=== PATIENT | male | born 1965 | race Caucasian/White ===

== ENCOUNTER 2018-05-30 20:56 | Emergency (ER) | payer SELFPAY ==
[2018-05-30 20:58] VITALS: BP 195/88; PULSE 102; RESP 20; TEMP 36.8; O2SAT 97; BMI 33.4
[2018-05-30 21:11] VITALS: BP 170/88; PULSE 97; RESP 19; O2SAT 97
--- NOTE | 2018-05-30 21:19 | EKG12_ITS ---
Test Reason : PALP Blood Pressure : / mmHG Vent. Rate : 099 BPM Atrial Rate : 099 BPM P-R Int : 120 ms QRS Dur : 094 ms QT Int : 346 ms P-R-T Axes : 049 064 053 degrees QTc Int : 444 ms Normal sinus rhythm Nonspecific ST abnormality Abnormal ECG Confirmed by TED JIMÉNEZ, MIGUEL ([id number]), movie editor MARVIN DE LA O ([id number]) on 06/02/2018 11:20:12 AM Referred By: AZRA Confirmed By:MIGUEL JEAN MD
--- NOTE | 2018-05-30 21:20 | RAD_ITS ---
STUDY: X-RAY CHEST REASON FOR EXAM: Male, 52 years old. Tachycardia, bilateral arm pain and lower abdominal pain. Prior history of hypertension and colorectal cancer. TECHNIQUE: 1 view # of Images: 2 COMPARISON: Prior portable chest of September 28, 2014 FINDINGS: The lungs are clear and expanded. There is no demonstrated pleural abnormality. Normal size heart. Normal mediastinum and ronnie. Normal visualized pulmonary arteries. Normal visualized aortic arch and descending thoracic aorta. There are diffuse degenerative changes of the visualized thoracic spine. Normal visualized ribs, clavicles, and shoulders. There is no demonstrated abnormality of the visualized soft tissue structures of the upper abdomen. RAD/Chest 1 View (Portable) IMPRESSION: No acute cardiopulmonary findings or changes. Negative for new consolidation, focal atelectasis, pleural effusion or cardiomegaly. Electronically Signed: Lashay Son MD at 22:10 EDT , Service support ,
[2018-05-30] MEDS: Aspirin 81 MG TAB.CHEW 324 MG PO (21:42)
[2018-05-30 21:56] LABS: Absolute Lymphocyte Count 1.35 X10^3/ul (0.83-4.51); Absolute Neutrophil Count 3.8 X10^3/uL (2.0-7.7); Basophil# 0.02 X10^3/uL; Basophil% 0.4 % (0-1); Eosinophil# 0.04 X10^3/uL; Eosinophils% 0.7 % (0-5); Hematocrit 44.4 % (40-54); Hemoglobin 15.2 g/dl (13.0-16.5); Lymphocyte # 1.35 X10^3/ul (4.0); Lymphocyte % 23.7 % (19-41); Mean Corp Hgb Conc 34.2 g/gl (32-36); Mean Corpuscular Hgb 31.4 pg (27.0-32.0); Mean Corpuscular Volume 91.7 fL (80-94); Mean Platelet Vol. 10.4 fl (6.2-12.0); Monocyte# 0.46 X10^3/uL; Monocyte% 8.1 % (0-10); Neutrophil # 3.82 X10^3/uL (2.7-7.7); Neutrophil % 66.9 % (47-70); Platelet Count 162 K/mm3 (150-450); RBC Distribution Width CV 12.6 % (11.6-14.6); RBC Distribution Width SD 41.7 fl (35.1-43.9); Red Blood Count 4.84 M/mm3 (4.6-6.2); White Blood Count 5.7 K/mm3 (4.4-11.0)
[2018-05-30 21:57] LABS: POSITIVE COUNT NO; POSITIVE DIFFERENTIAL NO; POSITIVE MORPHOLOGY NO
[2018-05-30 22:00] VITALS: BP 138/74; PULSE 75; RESP 18; O2SAT 97
[2018-05-30 22:12] LABS: Anion Gap 8 (5-15); BUN 14 mg/dL (7-18); Calcium,Total 8.8 mg/dL (8.5-10.1); Chloride 105 mmol/L (98-107); Creatinine, Serum 0.93 mg/dL (0.70-1.30); EST Glomerular Filtration Rate 90 mL/min (>60); Est Glom Filt Rate - Afr Amer 109 mL/min (>60); Estimated Creatinine Clearance 101.98 ml/min; Glucose 137 mg/dL (74-106); Potassium 3.5 mmol/L (3.5-5.1); Sodium Level 140 mmol/L (136-145)
--- NOTE | 2018-05-30 22:26 | ED.VISSUMM ---
- ER Visit Summary Date of Service: 05/30/18 Chief Complaint: Palpitations History of Present Illness: The patient is a 52 M who presents with palpitations. They started today. He also complains of other vague symptoms including tingling in his groin, he hears his heartbeat in his ears. He is very vague with his symptoms and cannot tell me anything specific except palpitations. He does have a history of atrial fibrillation as well as colorectal cancel. He is having no treatments for that at this time. He does have a colostomy in place and has no symptoms associated with that Physical Examination: Vital signs reviewed. HEENT exam unremarkable. Heart is regular rate and rhythm without murmurs. Lungs are clear to auscultation. Abdomen is soft and nontender. There is a colostomy in place that appears normal extremities reveal no edema. Peripheral pulses are equal. Skin exam normal. Neurologic exam normal. Test Results: EKG is sinus rhythm with a rate of 99. No ST changes. Laboratory studies normal except for glucose of 137. Chest x-ray unremarkable Emergency Department Course and Treatment: Patient was placed on the hat cutter. No evidence of ectopy or tachyarrhythmias. Patient will be discharged to monitor symptoms at home. He will follow-up with his PCP Treatment Plan: [] Disposition: Discharge Impression: Palpitations This note was generated with [employer] dictation software. It may contain incorrect words, spelling, and punctuation that were not noted in review of the chart prior to signing ED Disposition - Plan for ED Patient: Chief Complaint: Palpitations Referrals: Daron Mena MD [Primary Care Provider] -
--- NOTE | 2018-05-30 22:29 | ED.DCSUM_ITS ---
- ER Visit Summary Date of Service: 05/30/18 Chief Complaint: Palpitations History of Present Illness: The patient is a 52 M who presents with palpitations. They started today. He also complains of other vague symptoms including tingling in his groin, he hears his heartbeat in his ears. He is very vague with his symptoms and cannot tell me anything specific except palpitations. He does have a history of atrial fibrillation as well as colorectal cancel. He is having no treatments for that at this time. He does have a colostomy in place and has no symptoms associated with that Physical Examination: Vital signs reviewed. HEENT exam unremarkable. Heart is regular rate and rhythm without murmurs. Lungs are clear to auscultation. Abdomen is soft and nontender. There is a colostomy in place that appears normal extremities reveal no edema. Peripheral pulses are equal. Skin exam normal. Neurologic exam normal. Test Results: EKG is sinus rhythm with a rate of 99. No ST changes. Laboratory studies normal except for glucose of 137. Chest x-ray unremarkable Emergency Department Course and Treatment: Patient was placed on the cheese maker. No evidence of ectopy or tachyarrhythmias. Patient will be discharged to monitor symptoms at home. He will follow-up with his PCP Treatment Plan: [] Disposition: Discharge Impression: Palpitations This note was generated with [employer] dictation software. It may contain incorrect words, spelling, and punctuation that were not noted in review of the chart prior to signing ED Disposition - Plan for ED Patient: Chief Complaint: Palpitations Referrals: Daron Mena MD [Primary Care Provider] -
--- NOTE | 2018-05-30 22:30 | ED.DEP ---
ED Disposition - Plan for ED Patient: Disposition: Home or Assisted Living Chief Complaint: Palpitations Instructions: ED Palpitations Referrals: Daron Mena MD [Primary Care Provider] -
[2018-05-30 23:10] VITALS: BP 141/70; PULSE 79; RESP 16; O2SAT 97
== END 2018-05-30 23:12 | disposition home or self-care (01) ==
PROVIDERS: Emergency Provider Emergency Medicine; Family Provider Family Medicine; PCP Family Medicine
DX: R00.2 Palpitations (principal); I10 Essential (primary) hypertension; I48.91 Unspecified atrial fibrillation; Z72.0 Tobacco use; Z93.3 Colostomy status
CPT/HCPCS: 71045; 80048; 84484; 85025; 93005; 99285; A4216

== ENCOUNTER 2018-06-18 18:42 | Emergency (ER) | payer SELFPAY ==
[2018-06-18 18:43] VITALS: BP 194/81; PULSE 133; RESP 20; TEMP 36.4; O2SAT 98; BMI 33.2
[2018-06-18 18:46] VITALS: BP 194/81; PULSE 119; RESP 16; O2SAT 97
--- NOTE | 2018-06-18 18:55 | EKG12_ITS ---
Test Reason : Blood Pressure : / mmHG Vent. Rate : 119 BPM Atrial Rate : 119 BPM P-R Int : 146 ms QRS Dur : 088 ms QT Int : 320 ms P-R-T Axes : 054 053 017 degrees QTc Int : 450 ms Sinus tachycardia Possible Left atrial enlargement Nonspecific ST abnormality Abnormal ECG Confirmed by HARINI MIGUEL ([id number]), senior technical editor ABIDA LAKE ([id number]) on 06/22/2018 2:24:55 PM Referred By: SKY Confirmed By:HARINI MIGUEL
[2018-06-18 18:59] VITALS: PULSE 100
[2018-06-18] MEDS: 0.9% Normal Saline 1,000 ML 999 ML IV (18:59)
[2018-06-18 19:11] LABS: Absolute Lymphocyte Count 1.99 X10^3/ul (0.83-4.51); Absolute Neutrophil Count 5.5 X10^3/uL (2.0-7.7); Basophil# 0.02 X10^3/uL; Basophil% 0.2 % (0-1); Eosinophil# 0.05 X10^3/uL; Eosinophils% 0.6 % (0-5); Hematocrit 47.3 % (40-54); Lymphocyte # 1.99 X10^3/ul (4.0); Lymphocyte % 24.7 % (19-41); Mean Corp Hgb Conc 33.8 g/gl (32-36); Mean Corpuscular Volume 91.7 fL (80-94); Mean Platelet Vol. 10.3 fl (6.2-12.0); Monocyte# 0.49 X10^3/uL; Monocyte% 6.1 % (0-10); Neutrophil # 5.49 X10^3/uL (2.7-7.7); Neutrophil % 68.3 % (47-70); Platelet Count 167 K/mm3 (150-450); RBC Distribution Width CV 12.5 % (11.6-14.6); RBC Distribution Width SD 41.7 fl (35.1-43.9); Red Blood Count 5.16 M/mm3 (4.6-6.2); White Blood Count 8.1 K/mm3 (4.4-11.0)
[2018-06-18 19:12] LABS: POSITIVE COUNT NO; POSITIVE DIFFERENTIAL NO; POSITIVE MORPHOLOGY NO
[2018-06-18 19:23] LABS: Anion Gap 11 (5-15); BUN 14 mg/dL (7-18); Chloride 103 mmol/L (98-107); EST Glomerular Filtration Rate 83 mL/min (>60); Est Glom Filt Rate - Afr Amer 101 mL/min (>60); Estimated Creatinine Clearance 94.84 ml/min; Glucose 142 mg/dL (74-106); Potassium 3.2 mmol/L (3.5-5.1); Sodium Level 140 mmol/L (136-145)
[2018-06-18 19:56] VITALS: BP 154/80; PULSE 101; RESP 17; O2SAT 97
[2018-06-18 20:00] VITALS: BP 160/85; PULSE 94; RESP 16; O2SAT 96
--- NOTE | 2018-06-18 20:27 | ED.DCSUM_ITS ---
- ER Visit Summary Date of Service: 06/18/18 Chief Complaint: Palpitations History of Present Illness: The patient is a 52 M who presents with palpitations. He started with this 1 hour ago. At the same time he felt a cold sensation in his groin that went into his arms. He had no chest pain or shortness of breath with this. He does have a history of the same. I saw him for this a couple of months ago and had a negative workup at that time. He did follow-up with his seed cleaning machine operator. He recommended a Holter monitor but the patient did not do it because of the cost associated with it. Physical Examination: Vital signs reviewed. HEENT exam unremarkable. Heart is tachycardic and regular rhythm without murmurs. Lungs are clear to auscultation. Abdomen is soft and nontender. He has a colostomy in place in the left lower quadrant. Extremities reveal no edema. Skin exam normal. Neurologic exam normal. Test Results: EKG is sinus tachycardia with a rate of 119. No ST changes. Laboratory studies normal except for potassium of 3.2 Emergency Department Course and Treatment: I did replace his potassium orally. When I reevaluated him he felt better. His heart rate is in the mid 90s. I am unclear as to why the patient gets palpitations. It is a regular rhythm. He does have a history of paroxysmal atrial fibrillation but this is a regular rhythm. He will need to follow-up with his seed cleaning machine operator Treatment Plan: [] Disposition: Discharge Impression: Palpitations, hypokalemia This note was generated with [employer] dictation software. It may contain incorrect words, spelling, and punctuation that were not noted in review of the chart prior to signing ED Disposition - Plan for ED Patient: Disposition: Home or Assisted Living Chief Complaint: Palpitations Instructions: ED Palpitations Referrals: Daron Mena MD [Primary Care Provider] -
[2018-06-18 20:32] VITALS: BP 160/85; PULSE 98; RESP 16; O2SAT 98
== END 2018-06-18 20:33 | disposition home or self-care (01) ==
PROVIDERS: Emergency Provider Emergency Medicine; Family Provider Family Medicine; PCP Family Medicine
DX: R00.2 Palpitations (principal); E87.6 Hypokalemia; I48.0 Paroxysmal atrial fibrillation; I10 Essential (primary) hypertension; Z72.0 Tobacco use
CPT/HCPCS: 80048; 84484; 85025; 93005; 99284; J7030; A4216

== ENCOUNTER 2018-06-19 17:00 | Emergency (ER) | payer SELFPAY ==
[2018-06-19 17:02] VITALS: BP 173/82; PULSE 129; RESP 17; TEMP 36.9; O2SAT 97; BMI 32.8
[2018-06-19 17:16] VITALS: BP 164/98; PULSE 96; RESP 113; O2SAT 97
--- NOTE | 2018-06-19 17:24 | EKG12_ITS ---
Test Reason : PALPTAIONS Blood Pressure : / mmHG Vent. Rate : 104 BPM Atrial Rate : 104 BPM P-R Int : 142 ms QRS Dur : 102 ms QT Int : 348 ms P-R-T Axes : 064 055 039 degrees QTc Int : 457 ms Sinus tachycardia Minimal voltage criteria for LVH, may be normal variant Borderline ECG Confirmed by MARIAMA JIMÉNEZ, VICTORINO ([id number]), news assignment editor ABIDA LAKE ([id number]) on 06/23/2018 3:38:12 PM Referred By: ALIDA Confirmed By:VICTORINO LESLIE MD
--- NOTE | 2018-06-19 17:24 | RAD_ITS ---
STUDY: X-RAY CHEST REASON FOR EXAM: Male, 52 years old. Fever, palpitations. TECHNIQUE: PA and lateral chest. COMPARISON: 05/30/2018. FINDINGS: The lungs are clear and expanded. There is no demonstrated pleural abnormality. Normal size heart. Normal mediastinum and ronnie. Normal visualized pulmonary arteries. Normal visualized aortic arch and descending thoracic aorta. Normal visualized thoracic spine. Normal visualized ribs, clavicles, and shoulders. There is no demonstrated abnormality of the visualized soft tissue structures of the upper abdomen. RAD/Chest PA and Lateral IMPRESSION: Normal x-ray examination of the chest. Electronically Signed: Margie Hay MD at 17:57 EST Tel , Service support ,
[2018-06-19 17:57] VITALS: PULSE 90
[2018-06-19 18:01] LABS: ALB/GLOB Ratio 1.3 RATIO (0.9-2.4); AST(SGOT) 9 U/L (15-37); Absolute Lymphocyte Count 1.03 X10^3/ul (0.83-4.51); Absolute Neutrophil Count 4.3 X10^3/uL (2.0-7.7); Alanine Aminotransfer ALT/SGPT 28 U/L (16-61); Albumin, Serum 4.1 g/dL (3.2-5.0); Alkaline Phosphatase 82 U/L (45-117); Anion Gap 7 (5-15); BUN 14 mg/dL (7-18); BUN/Creat Ratio 15.8 RATIO (10-20); Basophil# 0.01 X10^3/uL; Basophil% 0.2 % (0-1); Calcium,Total 8.8 mg/dL (8.5-10.1); Chloride 105 mmol/L (98-107); Creatinine, Serum 0.89 mg/dL (0.70-1.30); EST Glomerular Filtration Rate 95 mL/min (>60); Eosinophil# 0.03 X10^3/uL; Eosinophils% 0.5 % (0-5); Est Glom Filt Rate - Afr Amer 116 mL/min (>60); Estimated Creatinine Clearance 106.57 ml/min; Globulin 3.2 g/dL (2.2-4.2); Glucose 113 mg/dL (74-106); Hematocrit 46.4 % (40-54); Hemoglobin 15.6 g/dl (13.0-16.5); Lymphocyte # 1.03 X10^3/ul (4.0); Lymphocyte % 17.2 % (19-41); Mean Corp Hgb Conc 33.6 g/gl (32-36); Mean Corpuscular Hgb 31.1 pg (27.0-32.0); Mean Corpuscular Volume 92.4 fL (80-94); Mean Platelet Vol. 10.1 fl (6.2-12.0); Monocyte# 0.66 X10^3/uL; Neutrophil # 4.26 X10^3/uL (2.7-7.7); Neutrophil % 70.9 % (47-70); Platelet Count 160 K/mm3 (150-450); Potassium 3.7 mmol/L (3.5-5.1); Protein, Total 7.3 g/dL (6.4-8.2); RBC Distribution Width CV 12.6 % (11.6-14.6); RBC Distribution Width SD 42.2 fl (35.1-43.9); Red Blood Count 5.02 M/mm3 (4.6-6.2); Sodium Level 140 mmol/L (136-145)
[2018-06-19 18:03] LABS: POSITIVE COUNT NO; POSITIVE DIFFERENTIAL NO; POSITIVE MORPHOLOGY NO
--- NOTE | 2018-06-19 19:05 | ED.VISSUMM ---
- ER Visit Summary Date of Service: 06/19/18 Chief Complaint: Palpitations History of Present Illness: The patient is a 52 M who presents with palpitations that began again tonight. Patient was seen here yesterday for the same thing and his potassium was low yesterday. Patient was given a dose of oral potassium yesterday and felt better. Patient states today he checked his blood pressure and it was slightly elevated. Patient states that his heart rate was up to 217. Patient states he does have a history of paroxysmal atrial fibrillation. Patient states the palpitations come and go and last for approximately 10 minutes. Patient states nothing seems to make them better or worse. Physical Examination: Vital signs are stable except for tachycardia of 129. Patient is in no acute distress. Patient is afebrile. Oral mucosa is pink and moist. Neck is supple. Trachea is midline. There is no JVD noted. Heart was regular and borderline tachycardic. Lungs are clear and equal bilaterally. There is good respiratory effort noted. Abdomen is soft. Bowel sounds are normal. Colostomy is in place without any signs of infection. Cranial nerves II through XII are intact. There are no focal motor or sensory deficits noted. The remaining physical exam is within normal limits. Test Results: EKG showed normal sinus rhythm with a rate of 104. There are no acute ST or T wave changes. PA and lateral chest x-ray does not show any evidence of cardiopulmonary process. CBC, comprehensive metabolic profile, and troponin were obtained were all within normal limits. Emergency Department Course and Treatment: Patient remained in normal sinus rhythm throughout his emergency department stay. Patient was instructed to follow-up with his primary care physician and curtain framer as scheduled. Patient states he cannot afford to have a Holter monitor placed. Patient was instructed to return if worse in any way. Patient understood and was agreeable with the plan. All questions were answered. Disposition: Discharge home Impression: Palpitations This note was generated with [employer] dictation software. It may contain incorrect words, spelling, and punctuation that were not noted in review of the chart prior to signing ED Disposition - Plan for ED Patient: Disposition: Home or Assisted Living Chief Complaint: Palpitations Diagnosis: Palpitations Instructions: ED Palpitations Referrals: Daron Mena MD [Primary Care Provider] -
--- NOTE | 2018-06-19 19:09 | ED.DCSUM_ITS ---
- ER Visit Summary Date of Service: 06/19/18 Chief Complaint: Palpitations History of Present Illness: The patient is a 52 M who presents with palpitations that began again tonight. Patient was seen here yesterday for the same thing and his potassium was low yesterday. Patient was given a dose of oral potassium yesterday and felt better. Patient states today he checked his blood pressure and it was slightly elevated. Patient states that his heart rate was up to 217. Patient states he does have a history of paroxysmal atrial fibrillation. Patient states the palpitations come and go and last for approximately 10 minutes. Patient states nothing seems to make them better or worse. Physical Examination: Vital signs are stable except for tachycardia of 129. Patient is in no acute distress. Patient is afebrile. Oral mucosa is pink and moist. Neck is supple. Trachea is midline. There is no JVD noted. Heart was regular and borderline tachycardic. Lungs are clear and equal bilaterally. There is good respiratory effort noted. Abdomen is soft. Bowel sounds are nor mal. Colostomy is in place without any signs of infection. Cranial nerves II through XII are intact. There are no focal motor or sensory deficits noted. The remaining physical exam is within normal limits. Test Results: EKG showed normal sinus rhythm with a rate of 104. There are no acute ST or T wave changes. PA and lateral chest x-ray does not show any evidence of cardiopulmonary process. CBC, comprehensive metabolic profile, and troponin were obtained were all within normal limits. Emergency Department Course and Treatment: Patient remained in normal sinus rhythm throughout his emergency department stay. Patient was instructed to follow-up with his primary care physician and steerer as scheduled. Patient states he cannot afford to have a Holter monitor placed. Patient was instructed to return if worse in any way. Patient understood and was agreeable with the plan. All questions were answered. Disposition: Discharge home Impression: Palpitations This note was generated with [employer] dictation software. It may contain incorrect words, spelling, and punctuation that were not noted in review of the chart prior to signing ED Disposition - Plan for ED Patient: Disposition: Home or Assisted Living Chief Complaint: Palpitations Diagnosis: Palpitations Instructions: ED Palpitations Referrals: Daron Mena MD [Primary Care Provider] -
[2018-06-19 19:10] VITALS: BP 148/88; PULSE 78; PULSE 85; RESP 16; O2SAT 97
== END 2018-06-19 19:36 | disposition home or self-care (01) ==
PROVIDERS: Emergency Provider Emergency Medicine; Family Provider Family Medicine; PCP Family Medicine
DX: R00.2 Palpitations (principal); I48.0 Paroxysmal atrial fibrillation; Z87.891 Personal history of nicotine dependence; Z85.038 Personal history of other malignant neoplasm of large intestine; Z85.048 Personal history of other malignant neoplasm of rectum, rectosigmoid junction, and anus
CPT/HCPCS: 71046; 80053; 84484; 85025; 93005; 99285; A4216

== ENCOUNTER 2023-09-09 11:45 | Emergency (ER) | payer MEDICARE, SELFPAY ==
[2023-09-09 11:46] VITALS: BP 161/88; PULSE 71; RESP 18; TEMP 36.6; O2SAT 97; BMI 30.6
== END 2023-09-09 13:38 | disposition left against medical advice (07) ==
LOC: ED 13:40
DX: R77.8 Other specified abnormalities of plasma proteins (principal)

== ENCOUNTER → 2023-12-26 | Outpatient (CLI) | payer MEDICARE, SELFPAY ==
[2023-12-26] VITALS (13 sets, daily range): BP systolic 139–176; BP diastolic 69–97; PULSE 66–77; RESP 13–15; TEMP 36.6; O2SAT 95–100; BMI 31.1
--- NOTE | 2023-12-26 | KI_PTH ---
PATIENT: RANJITH MELCHOR LOC: CT U#:[id number] AGE/SX: 58/M ROOM: RE12/26/[address]: Dr. Jessica Bradley MD : 1965 BED: DIS: 12/26/2023 SPEC #: [id number] RECD: 12/26/23 10:27 STATUS: RANI REQ #: [id number] SCOUT: 12/26/23 00:[address]: Jessica Bradley DEPT: SURGICAL PATHOLOGY RECD BY: Mirela Bingham ENTERED: 12/26/23 10:28 SP TYPE: KIDNEY BX OTHR DR: Dr. Daron Mena MD Tissues: Kidney, NOS Procedures: Electron Microscopy (ACH) Fluorescent Antibody (ACH) Kidney Biopsy (ACH) Fluorescent antibody (ACH) add'l Trichrome (control) PAS Stain (control) HEADER OPERATION: Right kidney biopsy PRE-OP DIAGNOSIS: Acute kidney injury TISSUE SUBMITTED: marcos x4 core MICROSCOPIC DIAGNOSIS Right kidney, biopsies: Focal global glomerulosclerosis. Severe interstitial fibrosis (estimated 50 to 60%) with proportionate tubular atrophy. Focal acute interstitial nephritis. Hypertensive arteriosclerotic changes. Negative immunofluorescence. See comment. 12/30/23 COMMENT Correlate clinically with history and onset of symptoms. Immunofluorescence profile is negative. Electron microscopy ultrastructure examination is deferred. The histologic findings are supportive of chronic renal disease with focal evidence of mild acute interstitial nephritis. There is evidence of vascular hypertensive change. No evidence of immune-mediated glomerulopathy. Case findings discussed with Dr. Bradley via phone by Dr. Prince Molina on December. Slides reviewed with Dr. Dixon who concurs. 12/30/23 MICROSCOPIC DESCRIPTION Slides are reviewed and interpreted at [facility] GROSS DESCRIPTION Specimen is sent entirely to [facility] for diagnosis. Per [facility]- Received in polytransport medium in a conical tube labeled with the patient's name and medical record number are 4 loo core biopsies measuring 1.2cm, 1.2cm, 1.0cm and 1.0cm in length; each approximately 0.1cm in width. Glomeruli are seen under the dissecting microscope. The specimen is divided for immunofluorescence, possible electron microscopy, and light microscopy. 12/30/2023
[2023-12-26 08:37] LABS: Absolute Lymphocyte Count 1.19 X10^3/uL (0.83-4.51); Absolute Neutrophil Count 4.5 X10^3/uL (2.0-7.7); Basophil# 0.02 X10^3/uL; Basophil% 0.3 % (0-1); Eosinophil# 0.08 X10^3/uL; Eosinophils% 1.2 % (0-5); Hematocrit 32.9 % (40-54); Hemoglobin 9.8 g/dL (13.0-16.5); Lymphocyte # 1.19 X10^3/ul (0.83-4.51); Lymphocyte % 17.7 % (19-41); Mean Corp Hgb Conc 29.8 g/dL (32-36); Mean Corpuscular Hgb 30.7 pg (27.0-32.0); Mean Corpuscular Volume 103.1 fL (80-94); Mean Platelet Vol. 9.9 fl (6.2-12.0); Monocyte# 0.83 X10^3/uL; Monocyte% 12.4 % (0-10); NRBC Flagged by Analyzer 0 % (0-5); Neutrophil # 4.54 X10^3/uL (2.7-7.7); Neutrophil % 67.5 % (47-70); Platelet Count 134 K/mm3 (150-450); RBC Distribution Width SD 61.2 fl (35.1-43.9); Red Blood Count 3.19 M/mm3 (4.6-6.2); White Blood Count 6.7 K/mm3 (4.4-11.0)
[2023-12-26] MEDS: 0.9% Normal Saline (250mL Bag) 250 ML 15 ML IV (08:54)
[2023-12-26 09:17] LABS: International Normalized Ratio 1.2
[2023-12-26 09:18] LABS: Partial Thromboplast Time 28.3 Seconds (24.1-36.2)
[2023-12-26] MEDS: Midazolam 2 MG/2 ML Syringe IV (09:30)
[2023-12-26] MEDS: fentaNYL 100 MCG/2 ML Ampul IV (09:31)
[2023-12-26] MEDS: Lidocaine 2% (20 ml mdv) 20 ML Vial INFILT (09:46)
[2023-12-26 10:05] LABS: Hepatitis B Surface Antigen Non-Reactive (Nonreactive); Hepatitis C Antibody Non-Reactive (Nonreactive)
--- NOTE | 2023-12-26 11:33 | PCM.OP.PRO ---
Procedure Report Date of Procedure: 12/26/23 Assessment & Plan Assessment/Plan (1) Acute kidney failure: QUALIFIERS: Acute renal failure type: unspecified Qualified Code(s): N17.9 - Acute kidney failure, unspecified PLAN: PROCEDURE: CT GUIDED RIGHT PERCUTANEOUS KIDNEY BIOPSY. ORDERING PROVIDER: Dr. Bradley INDICATION: Male, 58 years old. Acute renal failure. PROVIDER: KAREEM Matthews CONSENT: Written informed consent was obtained having explained the risks, benefits and alternatives in detail with the patient. The specific risk of hemorrhage requiring further treatment or intervention was detailed and accepted. The patient accepted the risks and agreed to proceed. Laboratory review and clinical assessment was performed. PRE-PROCEDURE SEDATION ASSESSMENT: Current history and physical dictated by referring provider and reviewed. No clinical changes since date of exam. Patient has an ASA Class of 2. PROCEDURAL SEDATION PROTOCOL: The Drugs used were: 2 mg Versed, IV, and 50 mcg Fentanyl, IV. The sedation time was: 20 minutes, starting at 9:30 AM and terminated at 11:50 AM. The procedural sedation protocol was independently monitored by the department nurse. RADIATION DOSAGE (If Supplied By Facility): CTDIvol = 17.54 mGy, DLP = 368.22 mGycm Individualized dose optimization techniques were used for this CT. TECHNIQUE: The patient was placed on the CT table in the prone position. Multiple axial images were obtained from the lung base through the caudal extent of the kidneys. An appropriate entry site was identified and a chao made on the skin. The skin overlying the right posterior flank was prepped and draped in sterile fashion. 2% lidocaine was administered subcutaneously for local anesthesia. Using CT guidance, an 18-gauge coaxial biopsy device was advanced to the avascular zone of the right kidney. A total of 4 core specimens were obtained. Specimens were microscopically reviewed by pathology in the CT suite and placed in formalin solution for further analysis. The needle was withdrawn. Hemostasis was achieved with manual compression and a sterile dressing was applied. The patient tolerated the procedure well without immediate complications. The patient returned to the holding bay in stable condition for nursing monitoring, per protocol. IMPRESSION: 1. Successful CT guided percutaneous right kidney biopsy. Pathology results are pending. 2. Procedural Sedation protocol utilized with independent monitoring by the department nurse. Procedures Radiology Radiology CT Procedures: 81010 Biopsy Kidney
[2023-12-27 06:09] LABS: Complement C3 132 mg/dL (82-167); Hepatitis B Core Ab Total Negative (Negative)
[2023-12-29 15:32] LABS: Anti-dsDNA Ab <1 IU/mL (0-9)
== END | disposition home or self-care (01) ==
PROVIDERS: Nurse Practitioner Acute Care; PCP Family Medicine; Referring Provider Internal Medicine Nephrology; Visit Provider Internal Medicine Nephrology
DX: N17.9 Acute kidney failure, unspecified (principal)
CPT/HCPCS: 50200; 36415; 77012; 85025; 85610; 85730; 86160; 86225; 86704; 86803; 87340; 88300; 88305; 88346; 88348; 88350; 99156; J7050; A4216